=== PATIENT | female | born 1985 | race Caucasian/White ===

== ENCOUNTER 2021-08-02 22:56 | Emergency (ER) | payer MEDICAID ==
[~2021-08-02] VITALS: Ht 149.9 cm; Wt 72.6 kg
[2021-08-02 23:17] VITALS: BP_SYST 122
--- NOTE | 2021-08-02 23:23 | NUR ---
Patient triaged and placed in waiting room. VS checked and patient appears in no acute distress at this time. Awaiting available bed, and MD notified of need for MSE.
--- NOTE | 2021-08-02 23:37 | NUR ---
Patient ambulatory to bed 8 for evaluation and treatment
--- NOTE | 2021-08-02 23:50 | NUR ---
Dr. Cullen assessing patient in room.
--- NOTE | 2021-08-03 00:24 | NUR ---
Patient is A/Ox4, lying in bed resting comfortably, no s/s of distress. Patients skin is intact, patient self turns. Patient stated pain is 3/10. Patient chest rise and fall symmetrical. Bed in low and locked position, bed rails up.
--- NOTE | 2021-08-03 00:45 | NUR ---
Patient stated, "I want the max dose of whatever muscle relaxant you have." Dr. Cullen informed that patient requests muscle relaxant. Dr. uCllen verbally acknowledged and order received.
[2021-08-03] MEDS ORDERED: CYCLOBENZAPRINE HCL 10 MG TABLET (FLEXERIL) PO ONE (01:00)
--- NOTE | 2021-08-03 01:05 | NUR ---
Patient informed that ER doctor, Dr. Cullen, ordered Flexeril orally. Patient stated, I don't want it now because I have acid reflux, but I want the Flexeril later. I'll tell you later whenI will take it." Patient informed that patient will be asked again if she still wants the Flexeril. Patient stated, "You can come back later and I'll let you know."
[2021-08-03] MEDS ORDERED: CYCLOBENZAPRINE HCL 10 MG TABLET (FLEXERIL) ONE (01:06)
[2021-08-03 01:11] LABS: BILIRUBIN,URINE NEGATIVE (NEGATIVE); BLOOD, URINE NEGATIVE (NEGATIVE); CLARITY/URINE CLEAR (CLEAR); COLOR,URINE YELLOW (YELLOW); GLUCOSE,URINE NEGATIVE (NEGATIVE); KETONES,URINE TRACE (NEGATIVE); LEUKOCYTE ESTERASE ,URINE 1+ (NEGATIVE); NITRITE, URINE NEGATIVE (NEGATIVE); PROTEIN URINE NEGATIVE (NEGATIVE); UROBILINOGEN,URINE 0.2 (0.2-1.0)
[2021-08-03 01:17] LABS: BASOPHILS # (AUTO) 0.1 K/uL (0.0-0.2); BASOPHILS % (AUTO) 0.7 % (0.0-2.0); CALCIUM 9.5 mg/dL (8.4-11.0); CREATININE 0.66 mg/dL (0.55-1.30); EOSINOPHILS # (AUTO) 0.3 K/uL (0.0-0.4); EOSINOPHILS % (AUTO) 2.8 % (0.0-4.0); HEMATOCRIT 36.9 % (36-48); HEMOGLOBIN 12.2 g/dL (12.0-16.0); LYMPHOCYTES # (AUTO) 2.7 K/uL (1.0-5.5); LYMPHOCYTES % (AUTO) 25.9 % (20.5-51.5); MEAN CORPUSCULAR HEMOGLOBIN 29 pg (27-31); MEAN CORPUSCULAR HGB CONC 33 % (32-36); MEAN CORPUSCULAR VOLUME 88 fL (79.0-98.0); MONOCYTES # (AUTO) 0.7 K/uL (0.0-1.0); MONOCYTES % (AUTO) 6.7 % (1.7-9.3); NEUTROPHILS # (AUTO) 6.6 K/uL (1.8-7.7); NEUTROPHILS % (AUTO) 63.9 % (40.0-70.0); PLATELET COUNT (AUTO) 363 K/uL (130-430); POTASSIUM 3.4 mmol/L (3.5-5.1); RED BLOOD CELL COUNT(AUTO) 4.21 MIL/uL (4.2-6.2); RED CELL DISTRIBUTION WIDTH 13.9 % (9.0-15.0); WHITE BLOOD COUNT (AUTO) 10.4 K/uL (4.8-10.8)
--- NOTE | 2021-08-03 01:30 | NUR ---
PATIENT A/OX4, LYING IN BED, RESTING COMFORTABLY, NO S/S OF DISTRESS, PATIENT CHEST RISE AND FALL SYMMETRICAL, VSS, PATIENT TURNS SELF.
[2021-08-03 01:32] LABS: ALBUMIN 3.9 g/dL (3.4-4.8); THYROID STIMULATING HORMONE 3.88 uIu/mL (0.36-3.74); TOTAL BILIRUBIN 0.2 mg/dL (0.0-1.0)
--- NOTE | 2021-08-03 01:45 | NUR ---
Patient asked if he wants the Flexeril which was ordered by Dr. Cullen. Patient stated, I don't want it now because I still have acid reflux, but I want the Flexeril later. I'll tell you later whenI will take it." Patient informed that patient will be asked again if she still wants the Flexeril. Patient stated, "You can come back later and I'll let you know." Addendum: 08/03/21 at 0247 by [email or web address] Patient asked if she wants the Flexeril which was ordered by Dr. Cullen. Patient stated, I don't want it now because I still have acid reflux, but I want the Flexeril later. I'll tell you later whenI will take it." Patient informed that patient will be asked again if she still wants the Flexeril. Patient stated, "You can come back later and I'll let you know."
--- NOTE | 2021-08-03 02:15 | NUR ---
Patient asked if she wants the Flexeril which was ordered by Dr. Cullen. Patient stated, I don't want it now because I still have acid reflux, but I want the Flexeril later. I'll tell you later whenI will take it." Patient informed that patient will be asked again if she still wants the Flexeril. Patient stated, "You can come back later and I'll let you know."
--- NOTE | 2021-08-03 02:20 | NUR ---
Patient stated, "I don't want the Flexeril, because I have acid reflux. Is there another way to take pain medication without a shot in my arm?" Patient offered IV route for pain medication, and explained that pain medication will be requested from ER doctor. Patient asked about IV procedure in ER. Patient educated on IV procedure used in ER. Patient then asked if Flexeril can be given via IV. Patient informed that Flexeril order was written orally by ER doctor. Patient became agitated and said, "I meant I want the max dose of a muscle relaxant through an IV." Patient informed that it was stated that pain medication was going to be requested from the ER doctor. Patient informed that the ER doctor stated that the muscle relaxant which was ordered was Flexeril and it was ordered orally, and since patient says she has acid reflux, ask patient if she is ok taking MAALOX to help acid reflux before patient takes oral Flexeril. Patient became upset stating, "I want a muscle relaxant, not MAALOX. You're not helping. I want to talk to a different nurse." Calmly walked out of room and went to ER to ask another nurse to help patient.
--- NOTE | 2021-08-03 02:20 | NUR ---
Note karen in ED - 08/03/21 at 0241 by [email or web address] PATIENT A/OX4, LYING IN BED, RESTING COMFORTABLY, NO S/S OF DISTRESS, PATIENT CHEST RISE AND FALL SYMMETRICAL, VSS, PATIENT TURNS SELF.
--- NOTE | 2021-08-03 02:25 | NUR ---
Note micahmaki in ED - 08/03/21 at 0247 by [email or web address] Patient asked if she wants the Flexeril which was ordered by Dr. Cullen. Patient stated, I don't want it now because I still have acid reflux, but I want the Flexeril later. I'll tell you later whenI will take it." Patient informed that patient will be asked again if she still wants the Flexeril. Patient stated, "You can come back later and I'll let you know."
[2021-08-03 03:04] LABS: BACTERIA,URINE None Seen /HPF (None Seen); RBC,URINE 0-3 /HPF (0-3)
[2021-08-03 03:05] LABS: MUCUS,URINE None Seen /LPF (None Seen)
--- NOTE | 2021-08-03 03:25 | NUR ---
Patient given written and verbal discharge instructions and verbalizes understanding. ER MD Dr. Cullen discussed with patient the results and treatment provided. Patient in stable condition. ID arm band removed. Rx given. Patient educated on pain management and to follow up with PMD. Pain Scale 2/10, skin intact. Opportunity for questions provided and answered. Medication side effect fact sheet provided. Patient vrebalized understanding of aftercare education, no further questions. Patient walks with strong gait.
[2021-08-03 03:27] VITALS: BP_SYST 115
== END 2021-08-03 03:27 | disposition home or self-care (01) ==
LOC: SED 22:56
DX: G89.29 Other chronic pain (principal); M54.9 Dorsalgia, unspecified; R94.6 Abnormal results of thyroid function studies; Z88.6 Allergy status to analgesic agent
CPT/HCPCS: 36415; 80053; 81000; 84443; 85025; 99283